=== PATIENT | female | born 1975 ===

== ENCOUNTER 2017-05-08 07:46 | Day surgery (SDC) | payer OTHER ==
[~2017-05-08] VITALS: Ht 172.7 cm; Wt 81.8 kg
[2017-05-08] MEDS: SODIUM CHLOR 0.9% 1000 ML INJ 1,000 ML IV SCH ×2 (08:00→10:43)
[2017-05-08 08:13] VITALS: BP 135/87; PULSE 78; RESP 20; TEMP 97.5; O2SAT 99
[2017-05-08 09:15] VITALS: BP 108/63; PULSE 75; RESP 20; TEMP 97.5; O2SAT 100
--- NOTE | 2017-05-08 09:19 | PD.RAD ---
Post Procedure Progress Note Procedure Date: May 08, 2017 Supervising Radiologist: Rashel Bear Proceduralist/Assist: Junaid Nava, RT(R), Erma Hyatt RT(R) Anesthesia: Local Plan of Activity Patient to Unit: ROPU Patient Condition: Good See PACS Report for procedural detail/treatment Rashel Bear MD May 08, 2017 09:19
[2017-05-08 09:57] LABS: CREATININE 0.92 MG/DL (0.50-1.00)
[2017-05-08 10:11] LABS: TOTAL PROTEIN,CSF 30.2 MG/DL (15.0-45.0)
[2017-05-08 10:43] LABS: RBC TUBE #4 2 /MM3; SUPERNATE COLOR TUBE #1 CLEAR (CLEAR); VOLUME TUBE # 1 3.1 ML; WBC TUBE #4 7 /MM3 (0-10)
[2017-05-08 10:44] LABS: CSF LYMPHOCYTES 90 %; CSF MONOCYTES 10 %; CSF NEUTROPHILS 0 %
[2017-05-08 11:15] VITALS: BP 110/63; PULSE 76; RESP 20; TEMP 97.5; O2SAT 100
--- NOTE | 2017-05-08 11:40 | RADRPT ---
EXAM DATE/TIME: 05/08/2017 10:06 [place] COMPARISON: No previous studies available for comparison. INDICATIONS : Patient presents with chronic migraines in need of lumbar puncture. MEDICAL HISTORY : Chronic Migraine High lipids Restless leg syndrome Idiopathic progressive neuropathy MS SURGICAL HISTORY : Ovarian cyst removal ENCOUNTER: Initial ACUITY: 1 year PAIN SCORE: 0/10 LOCATION: N/A LUMBAR PUNCTURE TIME: 0915 hours FLUORO TIME: 0.2 minutes IMAGE SERIES: ACCESS LEVEL: L4 FLUID: 13 cc of clear CSF was collected and sent to the laboratory for analysis. PROCEDURE : 1. Fluoroscopic guided lumbar puncture. The risks, benefits and alternatives to the procedure were explained and verbal and written consent w as obtained. The site was prepped in sterile fashion. Full sterile technique was used, including ca p, mask, sterile gloves and gown and a large sterile sheet. Hand hygiene and 2% chlorhexidine and/or betadine/alcohol prep was utilized per protocol for cutaneous antisepsis. The skin and subcutaneous tissues were infiltrated with local anesthetic solution. With fluoroscopic guidance the lumbar thecal sac was punctured at the level above. The fluid describ ed above was removed without difficulty. The patient tolerated the procedure well and there were no complications. CONCLUSION: Uncomplicated fluoroscopically guided lumbar puncture. Rashel Bear MD on May 08, 2017 at 11:37 Board Certified Radiologist. This report was verified electronically.
[2017-05-10 15:13] LABS: ALBUMIN CSF 12.4 mg/dL (<=27.0); IGG CSF 1.9 mg/dL (<=8.1); IGG INDEX CSF 0.68 (<=0.85); IGG/ALBUMIN CSF 0.15 (<=0.21); IGG/ALBUMIN SERUM 0.22 (<=0.40); SYNTHESIS RATE CSF 1.7 mg/24 h (<=12)
[2017-05-10 17:50] LABS: CSF CRYPTOCOCCUS ANTIGEN NOT DETECTED (NEGATIVE)
[2017-05-10 19:51] LABS: VDRL CSF NON-REACTIVE (NON-REACTVE)
[2017-05-11 09:48] LABS: CSF CRYPTOCOCCUS AG CONF ND (NOT DETECTD)
== END 2017-05-08 11:35 | disposition home or self-care (01) ==
LOC: HROP 07:46 → HRIP 07:47 → HROP 11:35
PROVIDERS: ATTEND Psychiatry & Neurology Neurology
DX: G35 Multiple sclerosis (principal); G43.909 Migraine, unspecified, not intractable, without status migrainosus; G25.81 Restless legs syndrome
CPT/HCPCS: 62270; 77003; 80048; 82040; 82042; 82784; 82945; 83873; 83916; 84157; 86403; 86592; 86618; 87015; 87070; 87102; 87116; 87205; 87206; 89051; J7030